=== PATIENT | female | born 1970 | race Caucasian/White ===

== ENCOUNTER → 2018-03-04 | Outpatient (CLI) | payer OTHER ==
[2015-11-28 23:43] VITALS: BP 110/65
== END ==
LOC: VAS 16:00
DX: I35.8 Other nonrheumatic aortic valve disorders (principal); I07.1 Rheumatic tricuspid insufficiency

== ENCOUNTER → 2018-03-23 | Outpatient (CLI) | payer OTHER ==
[2015-11-28 23:43] VITALS: BP 110/65
== END ==
LOC: CARDLAB 09:13 → CARDREHAB 11:56
DX: R06.02 Shortness of breath (principal); R07.9 Chest pain, unspecified

== ENCOUNTER → 2018-04-19 | Outpatient (CLI) | payer OTHER ==
[2015-11-28 23:43] VITALS: BP 110/65
== END ==
LOC: RAD 07:34
DX: R10.13 Epigastric pain (principal); R07.9 Chest pain, unspecified; K21.9 Gastro-esophageal reflux disease without esophagitis

== ENCOUNTER 2020-05-22 14:08 | Emergency (ER) | payer OTHER ==
[2020-05-22] MEDS ORDERED: PROVENTIL0.09 MG/A1 IH (14:30)
[2020-05-22] MEDS ORDERED: PROTONIX20 M1 (14:30)
[2020-05-22] MEDS ORDERED: SYMBICORT1 AE2 (14:30)
[2020-05-22 15:08] LABS: BASO # 0.2 (0.02-0.10); EOS # 0.1 (0.04-0.40); EOS % 0.7 % (1.0-5.0); HEMATOCRIT 40.4 % (37.0-47.0); HEMOGLOBIN 12.8 g/dL (12.5-16.0); LYMPH# 3.1 (1.50-4.00); MEAN CELL VOLUME 90 fl (78-100); MEAN CORPUSCULAR HEMOGLOBIN 29 pg (27-31); MEAN CORPUSCULAR HGB CONC 32 g/dL (33-37); MEAN PLATELET VOLUME 9.5 fl (7.4-10.4); MONO # 0.6 (0.20-0.80); NEU # 2.8 (1.40-6.50); PLATELET COUNT 240 K/mm3 (130-400); RED BLOOD COUNT 4.49 M/mm3 (4.10-5.30); RED CELL DISTRIBUTION WIDTH 13.5 % (11.5-14.5); WHITE BLOOD COUNT 6.8 K/mm3 (4.8-10.8)
[2020-05-22 15:16] LABS: ALBUMIN 3.6 g/dL (3.5-5.0)
[2020-05-22 15:17] LABS: POTASSIUM 3.8 mmol/L (3.5-5.1); SODIUM 138 mmol/L (136-145)
[2020-05-22 15:18] LABS: CALCIUM 8.4 mg/dL (8.3-10.5)
[2020-05-22 15:19] LABS: GLUCOSE 84 mg/dL (65-105); TOTAL PROTEIN 6.8 g/dL (6.4-8.3)
[2020-05-22 15:20] LABS: CARBON DIOXIDE 25 mmol/L (22-29)
[2020-05-22 15:21] LABS: TOTAL BILIRUBIN 0.6 mg/dL (0.2-1.2)
[2020-05-22 15:22] LABS: D-DIMER 1.3 mg/L FEU (0.15-0.50)
[2020-05-22 15:24] LABS: AST-SGOT 24 U/L (5-34)
[2020-05-22 15:26] LABS: ALT/SGPT 56 U/L (0-55)
[2020-05-22 15:34] LABS: TROPONIN-I < 0.03 ng/mL (<0.030)
[2020-05-22 16:58] LABS: URINE APPEARANCE CLEAR; URINE BILIRUBIN NEGATIVE (NEGATIVE); URINE BLOOD TRACE (NEGATIVE); URINE COLOR YELLOW; URINE GLUCOSE NEGATIVE (NEGATIVE); URINE KETONE NEGATIVE (NEGATIVE); URINE LEUKOCYTE ESTERASE NEGATIVE (NEGATIVE); URINE MUCUS PRESENT (NOT PRESENT); URINE NITRATE NEGATIVE (NEGATIVE); URINE PROTEIN(semi-quant) TRACE mg/dL (NEGATIVE); URINE UROBILINOGEN NORMAL (NORMAL)
[2020-05-22] MEDS ORDERED: TAMIFLU 75MG75 MG PO (17:07)
[2020-05-22 18:12] VITALS: BP 107/65
== END 2020-05-22 18:21 | disposition home or self-care (01) ==
LOC: ED 14:08
PROVIDERS: Nurse Practitioner Family
DX: B34.9 Viral infection, unspecified (principal); J10.1 Influenza due to other identified influenza virus with other respiratory manifestations; J40 Bronchitis, not specified as acute or chronic; Z20.822 Contact with and (suspected) exposure to COVID-19; Z79.51 Long term (current) use of inhaled steroids
CPT/HCPCS: J7030; Q9967

== ENCOUNTER → 2020-06-14 | Outpatient (CLI) | payer OTHER ==
[2020-05-22 18:12] VITALS: BP 107/65
[~2020-06-14] MED LIST: PROTONIX20 M1; PROVENTIL0.09 MG/A1 IH; SYMBICORT1 AE2; TAMIFLU 75MG75 MG PO
== END ==
LOC: LAB 15:51
DX: G93.3 Postviral and related fatigue syndromes (principal); K59.01 Slow transit constipation; L85.3 Xerosis cutis

== ENCOUNTER → 2020-10-10 | Outpatient (CLI) | payer OTHER | LOC: VAS 09:58 → RAD 10:00 → VAS 10:00 | DX: G93.3 Postviral and related fatigue syndromes (principal); R06.00 Dyspnea, unspecified ==

== ENCOUNTER 2023-11-27 03:59 | Emergency (ER) | payer OTHER ==
[~2023-11-27] VITALS: Ht 170.2 cm; Wt 80.1 kg
[2023-11-27] MEDS ORDERED: Ketorolac 30 MG/ML VIAL IM ONE (05:00)
[2023-11-27] MEDS ORDERED: KETOROLAC10 MG PO (05:54)
[2023-11-27] MEDS ORDERED: LIDOCAINE HCL100 M2 MM (05:54)
[2023-11-27 06:04] VITALS: BP 112/74
== END 2023-11-27 06:05 | disposition home or self-care (01) ==
LOC: ED 03:59
DX: K04.7 Periapical abscess without sinus (principal)
CPT/HCPCS: J1885

== ENCOUNTER → 2024-06-24 | Outpatient (CLI) | payer OTHER ==
[~2024-06-24] MED LIST changes: +Gadoterate 20 ML VIAL IV ONE; +KETOROLAC10 MG PO; +LIDOCAINE HCL100 M2 MM
== END ==
LOC: RAD 08:15
DX: M47.812 Spondylosis without myelopathy or radiculopathy, cervical region (principal); M54.50 Low back pain, unspecified; M54.6 Pain in thoracic spine; R51.9 Headache, unspecified
CPT/HCPCS: A9575

== ENCOUNTER → 2024-06-24 | Outpatient (CLI) | payer OTHER ==
[~2024-06-24] MED LIST changes: -Gadoterate 20 ML VIAL IV ONE
== END ==
LOC: RAD 10:00
DX: M47.814 Spondylosis without myelopathy or radiculopathy, thoracic region (principal)

== ENCOUNTER → 2024-06-24 | Outpatient (CLI) | payer OTHER | LOC: RAD 09:30 | DX: M47.816 Spondylosis without myelopathy or radiculopathy, lumbar region (principal) ==